=== PATIENT | female | born 1930 | race Caucasian/White ===

== ENCOUNTER 2016-08-09 15:18 | Emergency (ER) | payer BC, MEDICARE ==
[~2016-08-09] VITALS: Ht 157.5 cm; Wt 65.0 kg
[2016-08-09 15:33] VITALS: Ht 157.5 cm; Wt 65.0 kg
== END 2016-08-09 18:09 | disposition left against medical advice (07) ==
LOC: E/R 15:18
DX: Z53.21 Procedure and treatment not carried out due to patient leaving prior to being seen by health care provider (principal)